=== PATIENT | male | born 1980 | race Caucasian/White ===

== ENCOUNTER 2017-06-18 08:56 | Emergency (ER) | payer OTHER ==
[~2017-06-18] VITALS: Ht 195.6 cm; Wt 105.0 kg
[~2017-06-18 08:56] MED LIST: ASPIR-LOW81 MG PO; NOHOMEMEDS; PANTOPRAZOLE SO40 MG PO
[2017-06-18 10:12] LABS: HEMATOCRIT 44.8 % (38.0-50.0); MCH 29.6 PG (29.0-34.0); MCHC 34.2 G/DL (30.0-36.0); MCV 86.7 FL (86-99); MEAN PLAT.VOLUME 9.7 uM^3 (9.0-12.4); PLATELET COUNT 283 K/uL (156-360); RBC DIS.WIDTH-CV 12.8 % (11.8-14.6); RBC DIS.WIDTH-SD 40.1 % (39-53); RED BLOOD COUNT 5.17 M/uL (4.00-5.50); WHITE BLOOD COUNT 6.8 K/uL (4.1-10.2)
[2017-06-18 10:20] LABS: CHLORIDE 105 mEq/L (99-109); POTASSIUM 4.1 mEq/L (3.7-5.4); SODIUM 140 mEq/L (136-147)
[2017-06-18 10:21] LABS: GLUCOSE 95 mg/dL (70-99)
[2017-06-18 10:23] LABS: ANION GAP 9 MEQ/L (2-14)
[2017-06-18 10:25] LABS: GFR ESTIMATE (CALCULATED) > 59 mL/min/ (58.99-99999)
[2017-06-18 10:26] LABS: UREA NITROGEN (BUN) 13 mg/dL (9-23)
[2017-06-18 10:33] LABS: TROP-I INTERPRETATION NEGATIVE; TROPONIN-I < 0.01 ng/mL (0.0-0.30)
[2017-06-18 13:14] LABS: TROP-I INTERPRETATION NEGATIVE; TROPONIN-I < 0.01 ng/mL (0.0-0.30)
[2017-06-18 14:17] VITALS: BP 125/91
== END 2017-06-18 14:19 | disposition home or self-care (01) ==
LOC: EME 08:56
PROVIDERS: Nurse Practitioner Family
DX: R07.89 Other chest pain (principal); R00.2 Palpitations; R11.0 Nausea
CPT/HCPCS: 71020; 80048; 84484; 85027; 93005; 99281; 99284